=== PATIENT | male | born 1990 | race Caucasian/White ===

== ENCOUNTER 2022-02-15 14:34 | Emergency (ER) | payer BC, OTHER ==
[~2022-02-15] VITALS: Ht 165.1 cm; Wt 72.1 kg
[2022-02-15] MEDS ORDERED: KETOROLAC TROMETHAMINE INJ 30 MG/ML VIAL IM ONE (16:00)
[2022-02-15] MEDS ORDERED: HYDROCODONE/APAP 5/325MG TABLET PO ONE (16:00)
[2022-02-15] MEDS ORDERED: KETOROLAC TROMETHAMINE 15 MG/ML VIAL ONE (16:01)
[2022-02-15] MEDS ORDERED: HYDROCODONE/APAP 5/325MG TABLET ONE ×2 (16:01→16:08)
[2022-02-15 16:37] VITALS: BP 135/88
--- NOTE | 2022-02-15 16:38 | NUR ---
Patient discharged to home in stable condition. Written and verbal after care instructions given. Patient verbalizes understanding of instruction.
== END 2022-02-15 16:38 | disposition home or self-care (01) ==
LOC: ER 14:36
DX: S52.602A Unspecified fracture of lower end of left ulna, initial encounter for closed fracture (principal); Y08.09XA Assault by strike by other specified type of sport equipment, initial encounter; Y93.89 Activity, other specified; Y92.89 Other specified places as the place of occurrence of the external cause; Y99.8 Other external cause status
CPT/HCPCS: 73090-TC; J1885